=== PATIENT | male | born 1980 | race Caucasian/White ===

== ENCOUNTER 2024-01-23 14:31 | Emergency (ER) | payer OTHER, SELFPAY ==
[2024-01-23 14:37] VITALS: BP 146/98
--- NOTE | 2024-01-23 15:55 | ED.GENMED ---
History of Present Illness
General
Chief Complaint: Musculo-Skeletal Complaint
Source: patient
Exam Limitations: none
Time Seen by Provider: 01/23/24 15:23
History of Present Illness
History of Present Illness:
44-year-old male who presents with right neck pain that has been ongoing for 2 to 3 months. Patient states he plays hockey and he slid feet first into the boards and had some neck pain since then that radiated down his right trapezius. Patient was
recently at a soccer term with his family and slept on a block couch and the pain became much worse and now radiates down into his hand inclusive of his fourth and fifth digit. Patient has been trying to rub his arm with a lacrosse ball and did see
orthopedics. He was given Celebrex which he states did not do much. Denies motor weakness. No headache. No fevers.
Past History
Past History
ED Past Medical History: Arrthythmia (Atrial fibrillation), HTN, Other (Diverticulitis) and Other (Possible allergies causing headaches and dizziness)
ED Past Surgical History: None
Social History
Tobacco: Former smoker
Alcohol: Occasional
Drug: None
Personal:
Living: with family
Employment: Employed
Family History
Family History: Other (Noncontributory)
Phy Exam
Physical Exam
Physical Exam:
CONSTITUTIONAL Vital signs reviewed, Patient alert and oriented to person, place and time. Well-appearing
HEAD atraumatic, normocephalic.
EYES eyelids normal to inspection, Extraocular muscles intact, Conjunctiva normal, Sclera normal.
NECK normal range of motion, Trachea midline, no jugular venous distention.
RESP no respiratory distress
BACK No obvious deformities, mild tenderness right trapezius, no midline tenderness cervical or thoracic spine
UPPER EXTREMITY Gross Range of motion normal, gross motor strength normal
LOWER EXTREMITY Gross range of motion normal, Gross motor strength normal
NEURO Speech normal, No focal motor deficits include, Nubieber coma scale 15, Memory normal, Cranial Nerves intact to screening exam. Negative Asa's. Normal strength. No pronator drift
SKIN Skin warm, dry, and normal in color.
PSYCHIATRIC Patient oriented to person place and time, Normal affect.
Course
Orders/Labs/Results
Orders:
Orders
01/23/24 15:55
Prednisone [Deltasone] 50 mg PO NOW STA
Vital Signs
Initial and Last Documented VS:
Initial Vital Signs
Temp Pulse Resp BP Pulse Ox
97.8 F 88 18 146/98 97
01/23/24 14:37 01/23/24 14:37 01/23/24 14:37 01/23/24 14:37 01/23/24 14:37
Last Documented Vital Signs
Temp Pulse Resp BP Pulse Ox
97.8 F 88 18 146/98 97
01/23/24 14:37 01/23/24 14:37 01/23/24 14:37 01/23/24 14:37 01/23/24 14:37
MDM/Problems Addressed
MDM/Problems Addressed:
Cervical radiculopathy
*Pulse Oximetry
Patient hypoxic: no
*Critical Care Note
Total Time (30-74mins, 75-104mins- exclusive of procedures): Not Applicable
Data Reviewed
Source: patient
Prescriptions/Medications Considered But Not Given:
Consider narcotic pain control with the patient prefers to avoid
Further Testing Considered But Not Given:
Considered imaging the patient has an MRI planned for 1 week
Patient Management
Escalation/DeEscalation of care consider admission/obs:
Neuroexam normal. Suspect cervical radiculopathy. Trial steroids, NSAIDs, Tylenol and outpatient follow-up with MRI in 1 week. Follow-up with orthopedics.
ED Attending Note
-
Portions of this chart may have been created with voice recognition software.� Occasional wrong word or��sound alike� substitutions may have occurred due to the inherent limitations of voice recognition software.
Discharge Plan
Departure
Patient Disposition: Home (Routine Discharge)
Date of Disposition: 01/23/24
Time of Disposition: 15:59
Patient with high blood pressure during this ER visit?: Yes
Discharge Problem:
Cervical radiculopathy
Instructions: Radiculopathy (DC), BLOOD PRESSURE
Prescriptions:
New
prednisone 10 mg Tablet
See Rx Instructions .ROUTE .COMPLEX Qty: 45 0RF
Rx Instructions:
Take By Mouth:
50 mg daily x3 days, 40 mg daily x3 days,
30 mg daily x3 days, 20 mg daily x3 days,
10 mg daily x3 days
No Action
lisinopril 10 MG tablet
10 mg PO DAILY
apixaban [Eliquis] 5 MG tablet
5 mg PO BID Qty: 30 0RF
famotidine 20 MG tablet
20 mg PO BID Qty: 28 0RF
Rx Instructions:
Take 20 mg twice a day for 14 days
ascorbic acid (vitamin C) [Vitamin C] 500 MG tablet
1,000 mg PO BID Qty: 56 0RF
Rx Instructions:
Take 1,000 mg twice a day for 14 days
aspirin 81 MG tablet,chewable
81 mg PO DAILY Qty: 14 0RF
Rx Instructions:
Take 81 mg daily for 14 days
zinc sulfate 220 MG capsule
220 mg PO DAILY Qty: 14 0RF
Rx Instructions:
Take 220 mg daily for 14 days
cholecalciferol (vitamin D3) 1,000 UNITS tablet
2,000 units PO DAILY Qty: 28 0RF
Rx Instructions:
Take 2,000 units daily for 14 days
melatonin 5 MG tablet
5 mg PO HS Qty: 14 0RF
Rx Instructions:
Take 5 mg daily at bedtime for 14 days
Referrals:
Marcus Gusman MD [Family Provider] -
Activity Restrictions/Additional Instructions:
Please follow-up with orthopedics as planned. Return immediately for motor weakness, intractable pain, fevers, numbness or any other concerns.
Interventions
Interventions:
*Risk Screen - Suicide Last Done: 01/23/24 14:37
*General Assessment Last Done: 01/23/24 14:37
*Neglect/Abuse Screening Last Done: 01/23/24 14:37
Discharge Date and Time
Print Language: HEBREW
== END 2024-01-23 16:49 | disposition home or self-care (01) ==
LOC: EMR 14:31
PROVIDERS: EMERGENCY PHYSICIAN Emergency Medicine; FAMILY PHYSICIAN Family Medicine
DX: M54.12 Radiculopathy, cervical region (principal); I48.91 Unspecified atrial fibrillation; I10 Essential (primary) hypertension; Z87.891 Personal history of nicotine dependence
CPT/HCPCS: 99282

== ENCOUNTER → 2024-02-07 18:06 | Outpatient (REF) | payer OTHER, SELFPAY | LOC: PAVMRI 18:06 | PROVIDERS: ATTENDING PHYSICIAN Physical Medicine & Rehabilitation; FAMILY PHYSICIAN Physician Assistant Medical | DX: M54.12 Radiculopathy, cervical region (principal) | CPT/HCPCS: 72141 ==

== ENCOUNTER 2024-04-27 21:27 | Emergency (ER) | payer OTHER, SELFPAY ==
[2024-04-27 21:40] VITALS: BP 168/116
[2024-04-27] MEDS: NORCO 5/325 1 TABLET PO (23:25)
[2024-04-27 23:31] VITALS: BP 154/102
--- NOTE | 2024-04-28 02:11 | ED.GENMED ---
History of Present Illness
General
Chief Complaint: Swelling
Exam Limitations: none
Time Seen by Provider: 04/27/24 22:51
Nursing documentation reviewed up to this point in time: agreed with
History of Present Illness
History of Present Illness:
Patient to ED with complaint of pain and swelling to right posterior heel. Symptoms started on Saturday. No history of trauma. No feaver/chills. No prior history of same. Brought self to ED for eval.
Past History
Past History
ED Past Medical History: Arrthythmia (Atrial fibrillation), HTN, Other (Diverticulitis) and Other (Possible allergies causing headaches and dizziness)
ED Past Surgical History: None
Social History
Tobacco: Former smoker
Alcohol: Occasional
Drug: None
Personal:
Living: with family
Employment: Employed
Family History
Family History: Other (Noncontributory)
Review of Systems
Review of Systems
Allergies reviewed?: Yes
All Other Systems: ROS reviewed and negative except as documented in HPI and ROS
Constitutional: Reports no symptoms
Musculoskeletal: Reports joint pain (Pain and swelling to right posterior heel)
Skin: Reports no symptoms
Neurological: Reports no symptoms
Psychiatric: Reports no symptoms
Phy Exam
General Physical Exam
General Presentation: well appearing and mild distress
General age: appears stated age
General Skin: warm and dry
General Habitus: normal
General Mental: alert
General Hydration: appears well hydrated
Musculoskeletal Exam
Musculoskeletal Exam: neuro vasc intact and other (Achilles intact. Pain, swelling over calcaneal bursa consistent with bursitis. )
Skin Exam
Skin Exam: normal color, warm/dry and no rash
Psychiatric Exam
Psychiatric Exam: normal mood/affect
Course
Orders/Labs/Results
Orders:
Orders
04/27/24 21:29
US Legs, Right [US Periph Venous LOWER Ext RT] Urgent
Comment:
Reason For Exam: swelling/pain
04/27/24 23:17
Hydrocodone 5/APAP 325 [[place] 5/325] 1 tablet PO NOW STA
Vital Signs
Initial and Last Documented VS:
Initial Vital Signs
Temp Pulse Resp BP Pulse Ox
99.2 F 89 18 168/116 96
04/27/24 21:40 04/27/24 21:40 04/27/24 21:40 04/27/24 21:40 04/27/24 21:40
Last Documented Vital Signs
Temp Pulse Resp BP Pulse Ox
98.0 F 71 18 154/102 96
04/27/24 23:31 04/27/24 23:31 04/27/24 21:40 04/27/24 23:31 04/27/24 21:40
*Radiology
Radiology exam reviewed: radiology read reviewed
*Pulse Oximetry
Patient hypoxic: no
*Critical Care Note
Total Time (30-74mins, 75-104mins- exclusive of procedures): Not Applicable
ED Attending Note
-
Portions of this chart may have been created with voice recognition software.� Occasional wrong word or��sound alike� substitutions may have occurred due to the inherent limitations of voice recognition software.
Discharge Plan
Departure
Patient Disposition: Home (Routine Discharge)
Date of Disposition: 04/27/24
Time of Disposition: 23:17
Patient with high blood pressure during this ER visit?: No
Condition: Good
Covid-19: Not Applicable
Discharge Problem:
Calcaneal bursitis
Instructions: Using Cold for Pain, Bursitis ED, Ibuprofen
Prescriptions:
New
hydrocodone-acetaminophen 5-325 mg tablet
1 tab PO Q4H PRN (Reason: Pain) Qty: 10 0RF
No Action
lisinopril 10 MG tablet
10 mg PO DAILY
apixaban [Eliquis] 5 MG tablet
5 mg PO BID Qty: 30 0RF
famotidine 20 MG tablet
20 mg PO BID Qty: 28 0RF
Rx Instructions:
Take 20 mg twice a day for 14 days
ascorbic acid (vitamin C) [Vitamin C] 500 MG tablet
1,000 mg PO BID Qty: 56 0RF
Rx Instructions:
Take 1,000 mg twice a day for 14 days
aspirin 81 MG tablet,chewable
81 mg PO DAILY Qty: 14 0RF
Rx Instructions:
Take 81 mg daily for 14 days
zinc sulfate 220 MG capsule
220 mg PO DAILY Qty: 14 0RF
Rx Instructions:
Take 220 mg daily for 14 days
cholecalciferol (vitamin D3) 1,000 UNITS tablet
2,000 units PO DAILY Qty: 28 0RF
Rx Instructions:
Take 2,000 units daily for 14 days
melatonin 5 MG tablet
5 mg PO HS Qty: 14 0RF
Rx Instructions:
Take 5 mg daily at bedtime for 14 days
prednisone 10 mg Tablet
See Rx Instructions .ROUTE .COMPLEX Qty: 45 0RF
Rx Instructions:
Take By Mouth:
50 mg daily x3 days, 40 mg daily x3 days,
30 mg daily x3 days, 20 mg daily x3 days,
10 mg daily x3 days
Referrals:
Carlos Harper MD [Active] - Call in 1-3 days for appt
Interventions
Interventions:
*Risk Screen - Suicide Last Done: 04/27/24 23:51
*General Assessment Last Done: 04/27/24 23:51
*Neglect/Abuse Screening Last Done: 04/27/24 23:51
*Nursing Disposition Last Done: 04/27/24 23:51
ED- Cardiac Assessment Last Done: 04/27/24 23:29
ED- Pulmonary Assessment Last Done: 04/27/24 23:29
ED-Skin Assessment Last Done: 04/27/24 23:29
Discharge Date and Time
Discharge Date/Time: 04/27/24 23:53
Print Language: ROMANSH
Musculoskeletal Injury Exam
Musculoskeletal Injury Exam
Right posterior heel:
Pain with Movement?: Moderate
Tender to palpation?: Moderate
Soft tissue swelling?: Moderate
External deformity and angulation?: None
Joint effusion?: None
Contusion?: None
Hematoma-local bleeding into tissue?: None
Crepitus with movement?: No
Malalignment/deformity?: No
Range of motion: Limited
Distal skin color and temperature: normal-warm & good color
Capillary Refill: normal
Peripheral Pulses: posterior tibial (right): 3+ and dorsalis pedis (right): 3+
== END 2024-04-27 23:53 | disposition home or self-care (01) ==
LOC: EMR 21:27
PROVIDERS: EMERGENCY PHYSICIAN Emergency Medicine; FAMILY PHYSICIAN Family Medicine
DX: M77.51 Other enthesopathy of right foot and ankle (principal); I48.91 Unspecified atrial fibrillation; I10 Essential (primary) hypertension; Z87.891 Personal history of nicotine dependence
CPT/HCPCS: 99284; 93971

== ENCOUNTER 2025-07-19 14:36 | Emergency (ER) | payer OTHER, SELFPAY ==
[2025-07-19 14:55] VITALS: BP 150/97
[2025-07-19 15:32] LABS: Hematocrit 42.9 % (39.0-52.0); Hemoglobin 15.6 g/dL (13.0-18.0); Mean Corp Hgb Conc. 36.4 g/dL (33.0-37.0); Mean Corpuscular Volume 86.0 fL (80.0-94.0); Nucleated Red Blood Cells % 0 % (-); Platelet Count 186 10^3/uL (130-400); Red Cell Dist. Width 12.0 % (11.5-14.5)
[2025-07-19 15:41] LABS: ALT (SGPT) 51 U/L (0-50); AST (SGOT) 30 U/L (17-59); Albumin 4.9 g/dl (3.5-5.0); Alkaline Phosphatase 58 U/L (38-126); Blood Urea Nitrogen 18 mg/dl (9-20); Calcium 9.4 mg/dl (8.4-10.2); Carbon Dioxide 24 mmol/L (22-30); Chloride 100 mmol/L (98-107); Glucose 129 mg/dl (70-99); Potassium 3.8 mmol/L (3.5-5.1); Sodium 135 mmol/L (135-145); Total Protein 7.9 g/dl (6.3-8.2); eGFR > 60.00
[2025-07-19 15:45] LABS: Troponin I < 0.012 ng/ml
[2025-07-19 20:27] VITALS: BP 143/88
--- NOTE | 2025-07-19 20:33 | ED.GENMED ---
History of Present Illness
General
Chief Complaint: Headache
Source: patient
Time Seen by Provider: 07/19/25 19:32
History of Present Illness
History of Present Illness:
46-year-old male presents emergency department with complaints of feeling like his heart was racing and he first noticed yesterday lasting about 5 hours. With this states that he felt 'foggy' also described as dizzy, although not a sense of
spinning, feeling off balance. By 9 PM his symptoms resolved he went to bed. When he awoke in the morning he again had symptoms of feeling like his heart was racing associated with feeling foggy, blurry vision, and gradual onset of posterior
occipital headache since 8 PM. Denies associated chest pain or pressure, fever, chills, abdominal pain, nausea, vomiting, numbness, double vision, difficulty walking, or other complaints. Patient did present today before coming here. Since
arrival, he feels like his heart is not racing anymore. He also notes that he checked his blood pressure at home last night and it was elevated. He is compliant with his blood pressure medication and notes no new changes. Patient does have a
history of atrial fibrillation in the past status post cardioversion many years
Past History
Past History
ED Past Medical History: Arrthythmia (Atrial fibrillation), HTN, Other (Diverticulitis) and Other (Possible allergies causing headaches and dizziness)
ED Past Surgical History: Other (Optho)
Social History
Tobacco: Former smoker
Alcohol: Occasional
Drug: None
Personal:
Living: with family
Employment: Employed
Family History
Family History: Other (Noncontributory)
Phy Exam
Physical Exam
Physical Exam:
GENERAL: Alert , in no apparent distress
EYE: Left pupil round and reactive, EOMI (right eye prosthesis), notably via
NECK: Supple, no significant adenopathy.
ENT: o/p clr, mmm.
CARDIAC: Regular rate and rhythm .
LUNGS: Clear breath sounds bilaterally, no acute respiratory distress, no wheezes/rales/rhonchi
ABDOMEN: Soft, without focal tenderness, no r/g, no cvat
NEUROLOGICAL: Alert and oriented, no focal neuro deficits, normal gait, motor 5 out of 5, sensory intact, cranial nerves II through XII intact, [id number] normal
SKIN: Warm and dry, skin intact.
MUSCULOSKELETAL: No edema, well perfused.
PSYCH: Normal and appropriate interaction.
Course
Orders/Labs/Results
Orders:
Orders
07/19/25 15:01
Electrocardiogram (*1) Urgent
Reason for Study: Tachycardia
EKG- Treatment ONCE
07/19/25 15:12
CMP [Comprehensive Metabolic Panel] Urgent
Complete Blood Count/With Diff Urgent
Troponin I Urgent
07/19/25 19:32
CT Head W/o Iv Contrast Urgent
Comment:
Reason For Exam: mc
07/19/25 20:19
Cardiac Monitoring- Treatment ONCE
07/19/25 21:29
ECG [Electrocardiogram (*1)] Urgent
Reason for Study: Hypertension, Benign
EKG- Treatment ONCE
Abnormal Lab Results
07/19/25
15:12
MCH 31.3 H pg
(27.0-31.0)
MPV 10.8 H fL
(7.4-10.4)
Absolute Monos (auto) 0.8 H 10^3/uL
(0.1-0.6)
Glucose 129 H mg/dl
(70-99)
ALT 51 H U/L
(0-50)
07/19/25 15:12
07/19/25 15:12
Vital Signs
Initial and Last Documented VS:
Initial Vital Signs
Temp Pulse Resp BP Pulse Ox
98.7 F 103 16 150/97 98
07/19/25 14:55 07/19/25 14:55 07/19/25 14:55 07/19/25 14:55 07/19/25 14:55
Last Documented Vital Signs
Temp Pulse Resp BP Pulse Ox
98.7 F 65 16 110/81 97
07/19/25 14:55 07/19/25 23:00 07/19/25 23:00 07/19/25 23:00 07/19/25 22:45
*Pulse Oximetry
SaO2: 97
Oxygen Mode of Delivery: Room air
Patient hypoxic: no
*Critical Care Note
Total Time (30-74mins, 75-104mins- exclusive of procedures): Not Applicable
Update Note
Update Note:
Patient presents to the Emergency Department with ____heart racing and abnormal chest complaints
Number and Complexity of Problems Addressed at the Encounter
� Chronic conditions affecting care:
� Acute Exacerbation and/or Progression of Chronic Illness:
� Differential Diagnosis includes: But not limited to arrhythmia such as SVT, a flutter, A-fib, hypertensive urgency, tension headache, TIA/CVA etc. etc.
Amount and/or Complexity of Data to be Reviewed and Analyzed
� I performed an independent evaluation of and my interpretation is:
EKG: Read by me, normal sinus rhythm, normal rate, no acute ischemia
CT:DR MARTINEZ head nad
Xrays:
Laboratory Studies:generally unremarkable
Other:
� Review of other/old records reveals:
� Clinical information was obtained by an independent historian:
� Prescriptions/Medications Considered but not given:
� Further testing considered but not performed:
Risk of Complications and/or Morbidity or Mortality of Patient Management
� Social determinants of health affecting care:
� Discussion with other providers (PCP, Hospitalists, Consultants, etc):
� Escalation of care including admission/observation vs risk of discharge considered: Highly doubt subarachnoid hemorrhage given presentation and symptoms given he does not describe characteristics of light, no photophobia or
nuchal rigidity, neurofindings, etc. Highly doubt dissection, no identifiable risk factors, no trauma, no nuchal rigidity. Pain is minimal.
11:11 PM blood pressure now normal, patient nontoxic normal neurological exam, well-appearing. Discussed with patient importance of follow-up, particular with cardiology. As well as reasons to return the emergency department.
ED Attending Note
-
Portions of this chart may have been created with voice recognition software.� Occasional wrong word or��sound alike� substitutions may have occurred due to the inherent limitations of voice recognition software.
Discharge Plan
Departure
Patient Disposition: Home (Routine Discharge)
Patient with high blood pressure during this ER visit?: Yes
Discharge Problem:
Heart palpitations
Instructions: BLOOD PRESSURE, Heart Palpitations
Prescriptions:
No Action
lisinopril 10 MG tablet
10 mg PO DAILY
apixaban [Eliquis] 5 MG tablet
5 mg PO BID Qty: 30 0RF
famotidine 20 MG tablet
20 mg PO BID Qty: 28 0RF
Rx Instructions:
Take 20 mg twice a day for 14 days
ascorbic acid (vitamin C) [Vitamin C] 500 MG tablet
1,000 mg PO BID Qty: 56 0RF
Rx Instructions:
Take 1,000 mg twice a day for 14 days
aspirin 81 MG tablet,chewable
81 mg PO DAILY Qty: 14 0RF
Rx Instructions:
Take 81 mg daily for 14 days
zinc sulfate 220 MG capsule
220 mg PO DAILY Qty: 14 0RF
Rx Instructions:
Take 220 mg daily for 14 days
cholecalciferol (vitamin D3) 1,000 UNITS tablet
2,000 units PO DAILY Qty: 28 0RF
Rx Instructions:
Take 2,000 units daily for 14 days
melatonin 5 MG tablet
5 mg PO HS Qty: 14 0RF
Rx Instructions:
Take 5 mg daily at bedtime for 14 days
prednisone 10 mg Tablet
See Rx Instructions .ROUTE .COMPLEX Qty: 45 0RF
Rx Instructions:
Take By Mouth:
50 mg daily x3 days, 40 mg daily x3 days,
30 mg daily x3 days, 20 mg daily x3 days,
10 mg daily x3 days
hydrocodone-acetaminophen 5-325 mg tablet
1 tab PO Q4H PRN (Reason: Pain) Qty: 10 0RF
Referrals:
Marcus Gusman MD [Family Provider, Family Practice]
Liz Strong MD [Active, Cardiology] - Next open appointment
Activity Restrictions/Additional Instructions:
IF YOU DEVELOP CHEST PAIN, PERSISTENT PALPITATIONS, FEVER, VOMITING, TROUBLE BREATHING, OR OTHER WORRISOME SIGNS, GO TO THE ER IMMEDIATELY!
Interventions
Interventions:
*General Assessment Last Done: 07/19/25 20:28
*Neglect/Abuse Screening Last Done: 07/19/25 14:55
*ED COVID-19 Vaccine History Last Done: 07/19/25 20:28
*ED Influenza Vaccine History Last Done: 07/19/25 20:28
[facility] Fall Risk Assessment Tool Last Done: 07/19/25 20:05
*Risk Screen - Suicide (C-SSRS) Last Done: 07/19/25 20:28
*Nursing Disposition Last Done: 07/19/25 23:39
ED- Neurological Assessment Last Done: 07/19/25 20:06
Discharge Date and Time
Discharge Date/Time: 07/19/25 23:39
Print Language: GREEK
[2025-07-19 21:00] VITALS: BP 124/87
[2025-07-19 22:00] VITALS: BP 116/70
[2025-07-19 23:00] VITALS: BP 110/81
== END 2025-07-19 23:39 | disposition home or self-care (01) ==
LOC: EMR 14:36
PROVIDERS: Physician Assistant Medical; EMERGENCY PHYSICIAN Emergency Medicine; FAMILY PHYSICIAN Family Medicine
DX: R00.2 Palpitations (principal); R51.9 Headache, unspecified; I10 Essential (primary) hypertension; I48.91 Unspecified atrial fibrillation; Z87.891 Personal history of nicotine dependence
CPT/HCPCS: 99284; 70450; 80053; 84484; 85025; 93005